=== PATIENT | female | born 1955 | race Caucasian/White ===

== ENCOUNTER 2016-08-19 05:32 | Inpatient (IN) | payer OTHER ==
[2016-08-12 14:55] LABS: HEMATOCRIT 40.7 % (36.0-48.0); HEMOGLOBIN 13.9 g/dL (12.0-16.0)
--- NOTE | ~2016-08-19 | DS ---
Discharge Summary [facility] [address] [place]. [address] NAME: IDRIS VILLA : 59 STATUS : DIS IN PAT#: [id number] AGE: 60 ADM/REG DATE : 08/19/16 MR#: [id number] REPORT SERV DATE: 08/27/16 DICTATED BY: LEONARDO BURGESS DATE: 08/27/16 REPORT STATUS : Draft TRANSCRIBED BY: EARL DATE: 08/27/16 Data Collection from hospitalization DISCHARGE DIAGNOSES: 1. Grade 2 spondylolisthesis, gross instability and foraminal stenosis at L4-5. 2. 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 3. Hypercholesterolemia. CONSULTATIONS: None. PROCEDURES PERFORMED: 1. Microscopic navigation-assisted surgery; right L4-5 hemilaminectomy, foraminotomy, facetectomy; transforaminal diskectomy; anterior interbody cage insertion; posterolateral interbody fusion with local bone graft and allograft; posterior percutaneous Voyager instrumentation at L4-5 on 08/19/2016. PATHOLOGY: Lumbar vertebrae, fragments of fibrocartilage, skeletal muscle and bone with normal cellular marrow, spinal stenosis with radiculopathy, clinical. MEDICATIONS: Colace 100 mg twice daily, Robaxin 500 mg every eight hours, Ditropan XL 10 mg at bedtime, Crestor 10 mg at bedtime, [place] 5/325 one every four to six hours as needed, and Robaxin 500 mg every eight hours as needed for spasms. CONDITION AT DISCHARGE: Upon discharge, she did appear to be doing well and had no complaints. DISPOSITION: She was discharged home to continue a regular diet with activity as discussed. She was to follow up with me as previously scheduled. HOSPITAL COURSE: This 60-year-old female was from the [facility] with back and leg pain that had been present for several months. She has had her previous diskectomy and fusion at L5-S1 by other surgeons, this was many years ago and she had now developed adjacent segment degeneration, where she had a grade 1 spondylolisthesis with lateral flexion and extension x rays and she had foraminal stenosis on the left and right side. She had failed timed medication therapy and usual conservative care. She was now admitted for surgery and further treatment. Upon admission to the hospital, she had been taken to the operating room where she did undergo the above procedure. She had tolerated this well and was transferred to the recovery room. On postop day #1, she was evaluated by Physical Therapy. She did appear to be doing well and had no leg pain. She did, however, appear to be anxious. She had been placed on oral medications. On postop day #2, she did have complaints of low back pain; however, had no leg pain still. She was continued on physical therapy and did appear to be doing well. On postop day #3, she did remain in stable condition and still had no leg pain present. Her incision looked good, and due to her stable condition, she was then discharged with the above instructions. Information collected by: Adela JimenezI.T. I submit the above information as my discharge summary. Discharge Summary [facility] [address] [place]. [address] NAME: IDRIS VILLA : 59 STATUS : DIS IN PAT#: [id number] AGE: 60 ADM/REG DATE : 08/19/16 MR#: [id number] REPORT SERV DATE: 08/27/16 DICTATED BY: LEONARDO BURGESS DATE: 08/27/16 REPORT STATUS : Draft TRANSCRIBED BY: EARL DATE: 08/27/16 CYNDI/EARL Leonardo Burgess D.O. / [id number] CC: Beto Laughlin MARK
--- NOTE | ~2016-08-19 | PREOPHP ---
PreOp History and Physical [facility] [address] [place]. [address] NAME: IDRIS VILLA : 59 STATUS : ADM IN PAT#: [id number] AGE: 60 ADM/REG DATE : 08/19/16 MR#: [id number] REPORT SERV DATE: 08/19/16 DICTATED BY: LEONARDO CH DATE: 08/19/16 REPORT STATUS : Draft TRANSCRIBED BY: EARL DATE: 08/19/16 CHIEF COMPLAINT: Back pain, right leg pain. HISTORY OF PRESENT ILLNESS: A 60-year-old female from the [facility] with back and leg pain that has been present for several months. The patient had her previous diskectomy and fusion L5-S1 by other surgeons. This was many years ago and she has now developed adjacent segment degeneration where she has a grade 1 spondylolisthesis with lateral flexion and extension x-rays, and she has foraminal stenosis on left and right side. She has failed timed medication therapy and usual conservative care. She is brought to surgery for a right sided L4-5 hemilaminectomy, foraminotomy, facetectomy, transforaminal diskectomy, cage insertion, and posterior lateral interbody fusion with local bone graft and posterior percutaneous instrumentation. Prior to surgery, risks, benefits, alternatives, and expectations have been explained, and consent form has been signed. Please note, because of the need to carry out the safest and most precise dissection as well as identify correct level of surgery, an intraoperative navigation will be mandatory. PAST MEDICAL HISTORY: Hypercholesterolemia. PAST SURGICAL HISTORY: She has had knee arthroscopy and prior lumbar fusion in 1997. CURRENT MEDICATIONS: Crestor, ibuprofen. ALLERGIES: AMOXICILLIN AND MORPHINE. SOCIAL HISTORY: She is , , works full time paramedic. Does not use any tobacco or alcohol. FAMILY HISTORY: Noncontributory. REVIEW OF SYSTEMS: Also negative. PHYSICAL EXAMINATION: GENERAL: She is 5 feet 1 inch, 160 pounds, BMI is 31.1. She is alert, cooperative, well oriented. Ambulates independently. HEENT: Exam is grossly normal. LUNGS: Clear to auscultation. HEART: Rate is regular and rhythmic. ABDOMEN: Soft with good bowel sounds. No peritoneal signs are noted. MUSCULOSKELETAL: The spine itself has a previous midline incision, which is well healed. No paraspinous muscle spasms are noted. She has no leg length discrepancy or pelvic obliquity. She does have limited range of motion particularly with extension. She can flex to 60, but extends to only -10. She has difficulty with heel walking. She can toe walk. Straight leg raising signs and femoral nerve stretch tests are negative. Her right EHL is 4/5. Her tibialis anterior is 4+/5 on the right. All other motor strengths are 5/5. Reflexes are 1/4, but they are symmetrical bilaterally. No evidence of myelopathy found. PreOp History and Physical [address] [place]. [address] NAME: IDRIS VILLA : 59 STATUS : ADM IN [facility]#: [id number] AGE: 60 ADM/REG DATE : 08/19/16 MR#: [id number] REPORT SERV DATE: 08/19/16 DICTATED BY: LEONARDO CH DATE: 08/19/16 REPORT STATUS : Draft TRANSCRIBED BY: EARL DATE: 08/19/16 Toes are downgoing. No ankle clonus is found. No sensory deficits found. Orthopedically, she has no pain with moving hips, knees, or ankles. There are pulses in all four extremities. No abnormal skin lesions found. ASSESSMENT: Grade 2 spondylolisthesis, gross instability with adjacent segment degeneration and foraminal stenosis, L4-5. RECOMMENDATIONS: As listed above. СЕРГЕЙ/EARL Leonardo Ch D.O. / [id number] CC: Leonardo Ch D.O.
--- NOTE | ~2016-08-19 | OP ---
Record Of Operation [facility] [address] [place]. [address] NAME: IDRIS VILLA : 59 STATUS : ADM IN PAT#: [id number] AGE: 60 ADM/REG DATE : 08/19/16 MR#: [id number] REPORT SERV DATE: 08/19/16 DICTATED BY: LEONARDO BURGESS DATE: 08/19/16 REPORT STATUS : Draft TRANSCRIBED BY: MODL DATE: 08/19/16 DATE OF PROCEDURE: 08/19/2016 PREOPERATIVE DIAGNOSES: 1. Grade 2 spondylolisthesis, gross instability, and foraminal stenosis L4-5. 2. Adjacent segment degeneration, secondary to prior fusion at L5-S1. POSTOPERATIVE DIAGNOSES: 1. Grade 2 spondylolisthesis, gross instability, and foraminal stenosis L4-5. 2. Adjacent segment degeneration, secondary to prior fusion at L5-S1. PROCEDURE: 1. Microscopic navigation-assisted surgery. 2. Right L4-5 hemilaminectomy, foraminotomy, facetectomy. 3. Transforaminal diskectomy. 4. Anterior interbody cage insertion. 5. Posterolateral interbody fusion with local bone graft and allograft. 6. Posterior percutaneous Voyager instrumentation L4-5. SURGEON: Leonardo Burgess D.O. ALMOND BLANCHER HAND: Negrito Sevilla. ANESTHESIA: General. BLOOD LOSS: 50 mL. INDICATIONS FOR SURGERY: Indications for surgery and risks were explained. They are listed in last office note as well as the history and physical. See that for detail. DESCRIPTION OF PROCEDURE: Antibiotic prophylaxis given. Neurophysiology monitoring leads inserted. The patient brought to the operative suite. General anesthetic including endotracheal intubation was administered. Baeza catheter was placed with sterile technique. The patient was placed prone on a Conrad spine frame. Bony prominences were carefully padded. Thoracolumbar spine was scrubbed with Hibiclens solution. DuraPrep was painted. Sterile drapes applied. A small stab wound was carried out over the left posterior superior iliac spine. A percutaneous pin with navigational frame attached was inserted in the PSIS. Intraoperative CT scan of the O-arm obtained. CT information used to register the navigational system. Starting on the right side, I identified the L4-5 with navigational assistance. Just lateral to the facet joint, a 3 cm skin incision was carried out. The blunt navigated probe was placed through the fascia and muscle and docked over the facet joint. Muscle dilators were inserted followed by placement of a tubular retractor attached to an arm mount table, the microscope was sterilely draped and used throughout the remainder of the procedure. Record Of Operation [facility] [address] [place]. [address] NAME: IDRIS VILLA : 59 STATUS : ADM IN PAT#: [id number] AGE: 60 ADM/REG DATE : 08/19/16 MR#: [id number] REPORT SERV DATE: 08/19/16 DICTATED BY: LEONARDO BURGESS DATE: 08/19/16 REPORT STATUS : Draft TRANSCRIBED BY: MODSam DATE: 08/19/16 With navigational assistance, I identified the superior pedicle of L5. The inferior pedicle of L4. I dissected from lateral to medial using a cutting bur, a esther bur, and 2 mm and 3 mm Kerrison rongeurs. I removed the superior aspect of the L5 facet joint down to the top of the pedicle. I removed the inferior articular process of L4, the lamina of L4, and the pars interarticularis of L4, and a local bone graft was morcellized and used as part of the fusion graft mixed with allograft. I localized the exiting nerve root and it was carefully protected throughout the procedure. After decompression, there was definitely ligamentum flavum hypertrophy causing lateral recess and some central stenosis. Laterally in the far lateral zone, there was disk herniation with impingement on the exiting L4 nerve root. A transforaminal diskectomy was carried out with curettes, rongeurs, and disk rui. An interbody trial was carried out. The wound was irrigated. Interbody space was packed with a bone graft as mentioned above and bone protein. The cage was inserted through the transforaminal approach into the midline. Posterolateral interbody fusion with local bone graft and allograft and completed. Next, the retractor was removed. I moved to the left side. I carried out a 3 cm skin incision just lateral to the facet joint at L4-5. The fascia was incised in a percutaneous Voyager pedicle tap and screw self defense instructor were used to tap the pedicles of L4 and L5 bilaterally. A 35 mm cap Zircon lordotic yuriy was then placed through the top portion of the screw extenders, reduced into the tulip of the pedicle screw. The set screws inserted and tightened with a torque wrench bilaterally. Screw extenders were removed. Intraoperative CT scan with O-arm repeated. Intraoperative CT scan showed good position of all implants. There is a minimal breach on the right at L4, but that was so minimal, it does not appear to be causing any nerve impingement. The fascial opening was closed with a single interrupted #1 Vicryl suture. The subcutaneous tissue closed with 2-0 Vicryl sutures, 2-0 vertical mattress nylon suture used for skin closure. Sterile dressings applied. The patient awakened, extubated, taken to recovery room in satisfactory condition having tolerated procedure well. Sponge, needle, and instrument counts were correct. No intraoperative complications noted. СЕРГЕЙ/EARL Leonardo Burgess D.O. / [id number] CC: Beto Laughlin
[~2016-08-19 05:32] MED LIST: CRESTOR10 PO; DITROPAN XL10 MG PO; MIDODRINE10 MG PO
[2016-08-19 12:09] LABS: BASOPHILS 0.2 %; BASOPHILS ABSOLUTE 0.02 10/3/uL (0.0-0.16); EOSINOPHILS 0.2 %; EOSINOPHILS ABSOLUTE 0.02 10/3/uL (0.0-0.53); HEMATOCRIT 39.9 % (36.0-48.0); HEMOGLOBIN 13.7 g/dL (12.0-16.0); IMMATURE GRANULOCYTES 0.6 %; IMMATURE GRANULOCYTES ABSOLUTE 0.07 10/3/uL (0.0-0.11); LYMPHOCYTES 18.4 %; LYMPHOCYTES ABSOLUTE 2.19 10/3/uL (0.67-4.30); MEAN CORPUS HGB CONC 34.3 g/dL (32.0-36.0); MEAN CORPUSCULAR HEMOGLOB 30.6 pg (26.0-34.0); MEAN CORPUSCULAR VOLUME 89.3 fL (80-100); MEAN PLATELET VOLUME 9.7 fL (9.2-13.0); MONOCYTES ABSOLUTE 0.24 10/3/uL (0.21-1.20); NEUTROPHILS 78.6 %; NEUTROPHILS ABSOLUTE 9.37 10/3/uL (2.02-8.40); PLATELET COUNT 198 10/3/uL (150-400); RBC DISTRIBUTION WIDTH 13.5 % (12.0-16.0); RED CELL COUNT 4.47 10/6/uL (4.0-5.6); WHITE BLOOD CELLS 11.9 10/3/uL (4.5-10.5)
[2016-08-19 12:13] LABS: MANUAL DIFF NO %
[2016-08-19 12:23] LABS: BUN (BLOOD UREA NITROGEN) 9 MG/DL (6-23); CALCIUM, SERUM 8.5 MG/DL (8.5-10.4); CHLORIDE, SERUM 111 MMOL/L (96-112); CO2 (CARBON DIOXIDE) 27 MMOL/L (24-34); CREATININE 0.58 MG/DL (0.55-1.02); GFR AFRICAN AMERICAN 118 ML/MIN (>=60); GFR NON AFRICAN AMERICAN 102 ML/MIN (>=60); GLUCOSE, SERUM 157 MG/DL (60-99); POTASSIUM, SERUM 3.4 MMOL/L (3.5-5.3); SODIUM, SERUM 143 MMOL/L (135-148)
[2016-08-20 04:52] LABS: BASOPHILS 0.1 %; BASOPHILS ABSOLUTE 0.01 10/3/uL (0.0-0.16); EOSINOPHILS 0 %; HEMATOCRIT 36.6 % (36.0-48.0); HEMOGLOBIN 12.6 g/dL (12.0-16.0); IMMATURE GRANULOCYTES 0.2 %; IMMATURE GRANULOCYTES ABSOLUTE 0.03 10/3/uL (0.0-0.11); LYMPHOCYTES 19.3 %; LYMPHOCYTES ABSOLUTE 2.33 10/3/uL (0.67-4.30); MANUAL DIFF NO %; MEAN CORPUS HGB CONC 34.4 g/dL (32.0-36.0); MEAN CORPUSCULAR HEMOGLOB 30.6 pg (26.0-34.0); MEAN CORPUSCULAR VOLUME 88.8 fL (80-100); MEAN PLATELET VOLUME 9.9 fL (9.2-13.0); MONOCYTES ABSOLUTE 1.21 10/3/uL (0.21-1.20); NEUTROPHILS 70.4 %; NEUTROPHILS ABSOLUTE 8.48 10/3/uL (2.02-8.40); PLATELET COUNT 185 10/3/uL (150-400); RBC DISTRIBUTION WIDTH 13.3 % (12.0-16.0); RED CELL COUNT 4.12 10/6/uL (4.0-5.6); WHITE BLOOD CELLS 12.1 10/3/uL (4.5-10.5)
[2016-08-20 05:05] LABS: BUN (BLOOD UREA NITROGEN) 9 MG/DL (6-23); CALCIUM, SERUM 8.3 MG/DL (8.5-10.4); CHLORIDE, SERUM 105 MMOL/L (96-112); CO2 (CARBON DIOXIDE) 28 MMOL/L (24-34); CREATININE 0.57 MG/DL (0.55-1.02); GFR AFRICAN AMERICAN 118 ML/MIN (>=60); GFR NON AFRICAN AMERICAN 102 ML/MIN (>=60); GLUCOSE, SERUM 138 MG/DL (60-99); POTASSIUM, SERUM 3.5 MMOL/L (3.5-5.3)
[2016-08-20 05:09] LABS: SODIUM, SERUM 135 MMOL/L (135-148)
[2016-08-22] MEDS ORDERED: NORCO1 TA1 PO (11:07)
[2016-08-22] MEDS ORDERED: METHOC500B PO (11:08)
== END 2016-08-22 17:30 | disposition home or self-care (01) | DRG 460 ==
LOC: SDC/OF 05:32 → PACU 11:46 → 3SO 12:37
PROVIDERS: Orthopaedic Surgery Orthopaedic Surgery of the Spine
PROC: 0SG00AJ Fusion of Lumbar Vertebral Joint with Interbody Fusion Device, Posterior Approach, Anterior Column, Open Approach (ICD-10-PCS; principal; 2016-08-19 07:15)
PROC: 0ST20ZZ Resection of Lumbar Vertebral Disc, Open Approach (ICD-10-PCS; 2016-08-19 07:15)
PROC: 4A11X4G Monitoring of Peripheral Nervous Electrical Activity, Intraoperative, External Approach (ICD-10-PCS; 2016-08-19 07:15)
DX: M51.36 Other intervertebral disc degeneration, lumbar region (principal)
CPT/HCPCS: 36415; 80048; 82962; 85014; 85018; 85025; 86850; 86900; 86901; 87641; 88304; 88311; 93005; 97116-GP; 97161-GP; 97530-GP; A9270-GY; C1713; J0690; J1644; J2250; J2370; J2405; J2710; J3010